=== PATIENT | female | born 1950 | race Two or more races ===

== ENCOUNTER 2025-04-08 18:25 | Inpatient (IN) | payer MEDICARE, OTHER, MEDICAID ==
[~2025-04-08] VITALS: Ht 170.2 cm; Wt 56.7 kg
[2025-04-08] MEDS: DEXTROSE (50%) 50ML SYRG IV ONE (18:50)
--- NOTE | 2025-04-08 19:23 | ED.PDOC ---
Altered Mental Status HPI Comments 74 year-old female presents to the ED from [facility] for increased ALOC. Patient is normal baseline A&O X1, responding to name. Patients BGL on scene was 41. En route, BGL was 34 and given 1MG Glucagon. There are no further complaints or modifying factors at this time. Chief Complaint: ALOC Time Seen by MD: 18:36 Reviewed Notes: Medications, Allergies Allergies: Coded Allergies: Codeine (Verified Allergy, Unknown, 04/08/25) Penicillins (Verified Allergy, Unknown, 04/08/25) Information Source: Emergency Med Personnel Mode of Arrival: EMS Severity: Mild Timing: Minutes Duration: Since onset Past Medical History PAST MEDICAL HISTORY: Asthma, Dementia, DM, HTN Surgical History: Unknown Social History Smoker: Non-Smoker Alcohol: Denies ETOH Use Drugs: Denies Drug Use Lives In: Assisted Care Constitutional: denies: chills, diaphoresis, fatigue, fever, malaise, sweats, weakness, others EENTM: denies: blurred vision, double vision, ear bleeding, ear discharge, ear drainage, ear pain, ear ringing, eye pain, eye redness, hearing loss, mouth pain, mouth swelling, nasal discharge, nose bleeding, nose congestion, nose pain, photophobia, tearing, throat pain, throat swelling, voice changes, others Respiratory: denies: cough, hemoptysis, orthopnea, SOB at rest, shortness of breath, SOB with excertion, stridor, wheezing, others Cardiovascular: denies: chest pain, dizzy spells, diaphoresis, Dyspnea on exertion, edema, irregular heart beat, left arm pain, lightheadedness, palpitations, PND, syncope, others Gastrointestinal: denies: abdomen distended, abdominal pain, blood streaked bowels, constipated, diarrhea, dysphagia, difficulty swallowing, hematemesis, melena, nausea, poor appetite, poor fluid intake, rectal bleeding, rectal pain, vomiting, others Genitourinary: denies: abnormal vagina bleeding, burning, dyspareunia, dysuria, flank pain, frequency, hematuria, incontinence, pain, , vagina discharge, urgency, others Neurological: denies: dizziness, fainting, headache, left sided numbness, left sided weakness, numbness, paresthesia, pre-existing deficit, right sided numbness, right sided weakness, seizure, speech problems, tingling, tremors, weakness, others Musculoskeletal: denies: back pain, gout, joint pain, joint swelling, muscle pain, muscle stiffness, neck pain, others Integumetry: denies: bruises, change in color, change in hair/nails, dryness, laceration, lesions, lumps, rash, wounds, others Allergic/Immunocompromised: denies: Difficulty Healing, Frequent Infections, Hives, Itching, others Hematologic/Lymphatic: denies: anemia, blood clots, easy bleeding, easy bruising, swollen glands, others Endocrine: denies: excessive hunger, excessive sweating, excessive thirst, excessive urination, flushing, intolerance to cold, intolerance to heat, unexplained weight gain, unexplained weight loss, others Psychiatric: denies: anxiety, bipolar disorder, depression, hopeless, panic disorder, schizophrenia, sleepless, suicidal, others Unable to Obtain due to: Altered Mental Status All Other Systems: Reviewed and Negative Physical Exam General Appearance: No Apparent Distress, Normal, Other (Patient is A&Ox1, re sponding to name, normal baseline ) HEENT: Normal ENT Inspection, Pharynx Normal, TMs Normal Neck: Full Range of Motion, Non-Tender, Normal, Normal Inspection Respiratory: Chest Non-Tender, Lungs Clear, No Accessory Muscle Use, No Respiratory Distress, Normal Breath Sounds Cardiovascular: No Edema, No JVD, No Murmur, No Gallop, Normal Peripheral Pulses, Regular Rate/Rhythm Breast Exam: Deferred Gastrointestinal: No Organomegaly, Non Tender, No Pulsatile Mass, Normal Bowel Sounds, Soft Genitalia: Deferred Pelvic: Deferred Rectal: Deferred Extremities: No calf tenderness, Normal capillary refill, Normal inspection, Normal range of motion, Non-tender, No pedal edema Musculoskeletal : Apperance: Normal Neurologic: Alert, dermatologist II-XII nml as Tested, No Motor Deficits, Normal Affect, Normal Mood, No Sensory Deficits Cerebellar Function: Normal Reflexes: Normal Skin: Dry, Normal Color, Warm Lymphatic: No Adenopathy Was a procedure done? Was a procedure done?: No Differential Diagnosis (ALOC) Differential Diagnosis: Dehydration, Hypoglycemia, Seizure, Closed Head Injury X-Ray, Labs, Meds, VS Vital Signs Date Time Temp Pulse Resp B/P (MAP) Pulse Ox O2 Delivery O2 Flow Rate FiO2 04/08/25 19:30 97.6 65 13 137/63 (87) 99 97.6 04/08/25 19:30 Room Air* 0 21 04/08/25 18:51 96.4 73 16 123/69 98 96.4 04/08/25 18:32 67 Lab Test 04/08/25 20:21 04/08/25 20:02 04/08/25 19:23 Range/Units Troponin I High Sensitivity 9 10 </=34 ng/L POC Glucose 176 H 70-106 mg/dl White Blood Count 7.5 4.4-10.8 10^3/uL Red Blood Count 4.59 4.0-5.20 10^6/uL Hemoglobin 13.6 12.2-16.2 g/dL Hematocrit 40.4 36.0-46.0 % Mean Corpuscular Volume 88.0 80.0-100.0 fL Mean Corpuscular Hemoglobin 29.7 28.0-32.0 pg Mean Corpuscular Hemoglobin Concent 33.8 32.0-36.0 g/dL Red Cell Distribution Width 15.9 H 11.8-14.3 % Platelet Count 300 140-450 10^3/uL Mean Platelet Volume 8.6 6.9-10.8 fL Neutrophils (%) (Auto) 74.2 37.0-80.0 % Lymphocytes (%) (Auto) 21.4 10.0-50.0 % Monocytes (%) (Auto) 3.7 0.0-12.0 % Eosinophils (%) (Auto) 0.3 0.0-7.0 % Basophils (%) (Auto) 0.4 0.0-2.0 % Neutrophils # (Auto) 5.6 1.6-8.6 10 ^3/uL Lymphocytes # (Auto) 1.6 0.4-5.4 10 ^3/uL Monocytes # (Auto) 0.3 0-1.3 10 ^3/uL Eosinophils # (Auto) 0 0-0.8 10 ^3/uL Basophils # (Auto) 0 0-0.2 10 ^3/uL Nucleated Red Blood Cells 0.1 % Sodium Level 143 136-145 mmol/L Potassium Level 3.3 L 3.5-5.1 mmol/L Chloride Level 108 H 98-107 mmol/L Carbon Dioxide Level 26 20-31 mmol/L Anion Gap 9 5-15 Blood Urea Nitrogen 10 9-23 mg/dL Creatinine 0.73 0.550-1.02 mg/dL Glomerular Filtration Rate Calc 86 >90 mL/min BUN/Creatinine Ratio 13.7 10.0-20.0 Serum Glucose 202 H 74-106 mg/dL Calcium Level 9.0 8.7-10.4 mg/dL Current Medications Medications (Trade) Dose Ordered Sig/Nahomy Route Start Time Stop Time Status Last Admin Dextrose 25 ml ONCE ONCE IV 04/08/25 18:45 04/08/25 18:46 DC 04/08/25 18:50 [place] [id number] Ph: [phone] DIAGNOSTIC IMAGING Diagnostic Imaging Report : [id number] Signed PATIENT: AGATHA GARCIA ACCT: [id number] UNIT: [id number] : 1950 LOC: ER ROOM / BED: / AGE / SEX: 74 / F ADM STATUS: REG ER SERVICE 09 ORDERING PHYSICIAN: LEANDRO HOOVER MD PROCEDURE(s): CXR1 - CHEST XRAY 1 VIEW REASON: altered ORDER NUMBER(s): [id number], ACCESSION NUMBER(s): [id number] CHEST RADIOGRAPH INDICATION: altered TECHNIQUE: Single frontal view of the chest was obtained COMPARISON: None FINDINGS: Lines and Tubes: None Lungs: No focal consolidation. Pleura: No effusion. No pneumothorax. Cardiomediastinal contours: Bones: No acute osseous abnormality. Narrowing of the acromial humeral joint space bilaterally suggesting rotator cuff tears. If of clinical concern recommend MRI. IMPRESSION: 1. No acute cardiopulmonary disease. 2. Patient is rotated to the right. 3. Narrowing of the acromial humeral joint space raising the question of chronic rotator cuff tear bilaterally. X-Ray, Labs, Meds, VS Comment Previous history reviewed: DM, Dementia, HTN, Asthma The following tests were ordered, and results were reviewed by me: CBC, BMP, UA, Troponin, EKG, Accucheck Additional Information was gathered from interviewing the following independent historians: N/A I reviewed and agreed with the following test results read by other providers: Chest XRAY I discussed treatment and results with medical personnel and: patient Comprehensive systems review obtained and negative except for what is stated in the HPI. Time of 1ST Reevaluation: 19:31 Reevaluation 1ST: Unchanged Patient Education/Counseling: Diagnosis, Treatment Family Education/Counseling: Diagnosis, Treatment, No Family Present Comments This is a patient who is from a assisted-living facility for most who was found to be lethargic. Blood sugar was low in the 40s. Since then patient has been given multiple doses of glucose however her sugar gradually taper down into the 60s again. She is on glipizide at home head CT does not show any intracranial causes of her lethargy. She does not have any evidence of acute NM or any active infections. Patient will need to be admitted for further evaluation and treatment for the recurrent and recalcitrant hypoglycemia causing lethargy This is a patient who is from a correction was found to be altered with hypoglycemia. She repeatedly had episodes of hypoglycemia despite of multiple doses of dextrose that was given. Patient will be admitted for further evaluation and treatment of the recalcitrant episodes of hypoglycemia. Dr. Tomlinson have put orders in the computer and Rodgers called us to give us authorization number. I was never involved in this. However it appears that Dr. Galdamez had obtained authorization to admit the patient here. SEPSIS Sepsis Screen Recent Procedure: No On Antibiotic Therapy: No Respiratory Rate >20: No Heart Rate >90: No Temp<36 C (96.8 F) or >38.3 C: No SBP <90 or MAP <65 mmHG: No New Acute Mental Status Change: No Is the patient on CPAP, BIPAP,: No SEPSIS EXCLUSION NOTE: pt is not septic Physician Orders Electrocardigram (04/08/25 18:49) Chest Xray 1 View (04/08/25 19:10) Continuous Ekg Monitoring 08,12,16,20,00,04 (04/08/25 19:10) Accucheck (04/08/25 20:00) Accucheck (04/08/25 21:00) Accucheck (04/08/25 22:00) Accucheck (04/08/25 23:00) Accucheck (04/09/25 00:00) Accucheck (04/09/25 01:00) Accucheck (04/09/25 02:00) Accucheck (04/09/25 03:00) Accucheck (04/09/25 04:00) Accucheck (04/09/25 05:00) Accucheck (04/09/25 06:00) Accucheck (04/09/25 07:00) Accucheck (04/09/25 08:00) Accucheck (04/09/25 09:00) Accucheck (04/09/25 10:00) Accucheck (04/09/25 11:00) Accucheck (04/09/25 12:00) Accucheck (04/09/25 13:00) Accucheck (04/09/25 14:00) Accucheck (04/09/25 15:00) Accucheck (04/09/25 16:00) Accucheck (04/09/25 17:00) Accucheck (04/09/25 18:00) Accucheck (04/09/25 19:00) Accucheck (04/09/25 20:00) Accucheck (04/09/25 21:00) Accucheck (04/09/25 22:00) Accucheck (04/09/25 23:00) Vital Signs Date Time Temp Pulse Resp B/P (MAP) Pulse Ox O2 Delivery O2 Flow Rate FiO2 04/08/25 19:30 97.6 65 13 137/63 (87) 99 97.6 04/08/25 19:30 Room Air* 0 21 04/08/25 18:51 96.4 73 16 123/69 98 96.4 04/08/25 18:32 67 Laboratory Tests Test 04/08/25 19:23 White Blood Count 7.5 10^3/uL (4.4-10.8) Medications Medications Dose Ordered Sig/Nahomy Route Start Time Stop Time Status Last Admin Dose Admin Dextrose 25 ml ONCE ONCE IV 04/08/25 18:45 04/08/25 18:46 DC 04/08/25 18:50 Departure 1 Departure Time of Disposition: 03:30 Impression: Primary Impression: Generalized weakness Additional Impression: Hypoglycemia Disposition: ADMITTED INPATIENT Admit to: Med Surg Condition: Serious Critical Care Note Critical Care Time?: Yes (55 min-critical care time only) Critical care comment: Total critical care time: Approximately 5 minutes Due to a high probability of clinically significant, life threatening deterioration, the patient required my highest level of preparedness to intervene emergently and I personally spent this critical care time directly and personally managing the patient. This critical care time included obtaining a history; examining the patient; pulse oximetry; ordering and review of studies; arranging urgent treatment with development of a management plan; evaluation of patient's response to treatment; frequent reassessment; and, discussions with other providers. This critical care time was performed to assess and manage the high probability of imminent, life-threatening deterioration that could result in multi-organ failure. It was exclusive of separately billable procedures and treating other patients. Stability Stability form required: No Heart Score Heart Score: Heart Score Response (Comments) Value History N/A 0 EKG N/A 0 Age N/A 0 Risk Factors N/A 0 Troponin N/A 0 Total 0 I personally scribed for LEANDRO HOOVER MD (TONIE) on 04/08/25 at 19:23. Electronically submitted by Diane Figueroa (Audaster). I personally scribed for LEANDRO HOOVER MD (TONIE) on 04/08/25 at 19:23. Electronically submitted by Diane Figueroa (Audaster). I personally scribed for LEANDRO HOOVER MD (TONIE) on 04/08/25 at 20:29. Electronically submitted by Diane Figueroa (Audaster). LEANDRO HOOVER MD Apr 08, 2025 19:23
[2025-04-08 19:33] LABS: Hematocrit 40.4 % (36.0-46.0); Hemoglobin 13.6 g/dL (12.2-16.2); Mean Corpuscular Hemoglobin 29.7 pg (28.0-32.0); Mean Corpuscular Volume 88.0 fL (80.0-100.0); Nucleated Red Blood Cells % 0.1 %
[2025-04-08 19:39] LABS: Sodium 143 mmol/L (136-145)
[2025-04-08 19:40] LABS: Anion Gap 9 (5-15); Carbon Dioxide 26 mmol/L (20-31)
[2025-04-08 19:41] LABS: Calcium 9.0 mg/dL (8.7-10.4)
[2025-04-08 19:45] LABS: BUN/Creatinine Ratio 13.7 (10.0-20.0); Blood Urea Nitrogen 10 mg/dL (9-23)
--- NOTE | 2025-04-08 19:51 | DVH ---
CHEST RADIOGRAPH INDICATION: altered TECHNIQUE: Single frontal view of the chest was obtained COMPARISON: None FINDINGS: Lines and Tubes: None Lungs: No focal consolidation. Pleura: No effusion. No pneumothorax. Cardiomediastinal contours: Bones: No acute osseous abnormality. Narrowing of the acromial humeral joint space bilaterally suggesting rotator cuff tears. If of clinical concern recommend MRI. IMPRESSION: 1. No acute cardiopulmonary disease. 2. Patient is rotated to the right. 3. Narrowing of the acromial humeral joint space raising the question of chronic rotator cuff tear bilaterally.
[2025-04-08 20:18] LABS: Chloride 108 mmol/L (98-107); Glucose 202 mg/dL (74-106); Potassium 3.3 mmol/L (3.5-5.1)
[2025-04-08] MEDS ORDERED: NITROGLYCERIN 0.4 MG SL TAB SL PRN (21:30)
[2025-04-08] MEDS ORDERED: DOCUSATE SOD 100 MG CAP PO PRN (21:30)
[2025-04-08] MEDS ORDERED: ONDANSETRON HCL 4 MG/2 ML VIAL IV PRN (21:30)
[2025-04-09] VITALS (8 sets, daily range): BP systolic 140–178; BP diastolic 79–92; PULSE 69–81; RESP 15–17; TEMP 97.7–98.3; O2SAT 94–99
--- NOTE | 2025-04-09 02:58 | DVH ---
EXAM: CT HEAD WITHOUT CONTRAST INDICATION: altered TECHNIQUE: CT of the head without intravenous contrast. Radiation Dose : 1. Head: CT Dose: CTDI volume is 91.56 mGy. Dose-length product is 2720.87 mGy*cm The dose indicators for CT are the volume Computed Tomography (CT) Dose Index (CTDIvol) and the Dose Length Product (DLP), and are measured in units of mGy and mGy-cm, respectively. These indicators are not patient dose, but values generated from the CT scanner acquisition factors. The report includes radiation exposure data for exposures received during this examination. COMPARISON: None FINDINGS: There is no evidence of acute intracranial hemorrhage, extra-axial collection, mass effect, midline shift, herniation or hydrocephalus. Increased prominence of the ventricles, sulci and cisterns consistent with sequelae Of atrophic cortical volume loss. The gruber-white differentiation is intact. Moderate diffuse confluent periventricular and subcortical white matter hypoattenuation is nonspecific but may be related to small vessel ischemic disease. Left ethmoid and right maxillary mucosal sinus disease. The remaining visualized paranasal sinuses and mastoid air cells are clear. The surrounding soft tissues and osseous structures are unremarkable. IMPRESSION: 1. No acute intracranial abnormality. 2. Chronic sequelae of microangiopathy and atrophic cortical volume loss. Radiation optimization: All CT scans at this facility use at least one of these dose optimization techniques: automated exposure control mA and/or kV adjustment per patient size (includes targeted exams where dose is matched to clinical indication) or iterative reconstruction.
[2025-04-09 03:11] LABS: Urine Protein, UAD 1+ (Negative)
[2025-04-09] MEDS: D5W/SOD CHLO 0.9% 1,000 ML IV SCH (03:49)
[2025-04-09] MEDS: DEXTROSE (50%) 50ML SYRG IV ONE (03:57)
[2025-04-09 04:32] LABS: Hematocrit 37.3 % (36.0-46.0); Hemoglobin 12.5 g/dL (12.2-16.2); Mean Corpuscular Hemoglobin 29.1 pg (28.0-32.0); Mean Corpuscular Volume 86.8 fL (80.0-100.0); Nucleated Red Blood Cells % 0.1 %
[2025-04-09 05:00] LABS: Alkaline Phosphatase 71 U/L (46-116); Anion Gap 9 (5-15); BUN/Creatinine Ratio 21.2 (10.0-20.0); Blood Urea Nitrogen 14 mg/dL (9-23); Carbon Dioxide 27 mmol/L (20-31); Glucose 104 mg/dL (74-106); Sodium 145 mmol/L (136-145); Total Protein 6.2 g/dL (5.7-8.2)
[2025-04-09 05:01] LABS: Bilirubin, Total 0.9 mg/dL (0.2-1.0)
[2025-04-09 05:14] LABS: Alanine Aminotransferase < 9 U/L (7-40); Albumin 3.0 g/dL (3.2-4.8); Calcium 8.7 mg/dL (8.7-10.4); Chloride 109 mmol/L (98-107); Potassium 3.5 mmol/L (3.5-5.1)
--- NOTE | 2025-04-09 06:57 | DVHHP2 ---
H&P Exam Vital Signs Vital Signs Date Time Temp Pulse Resp B/P (MAP) Pulse Ox O2 Delivery O2 Flow Rate FiO2 04/09/25 05:16 68 12 155/90 (111) 98 04/09/25 01:35 98.5 98.5 04/08/25 19:30 Room Air* 0 21 SEPSIS Sepsis Screen Recent Procedure: No On Antibiotic Therapy: No Respiratory Rate >20: No Heart Rate >90: No Temp<36 C (96.8 F) or >38.3 C: No SBP <90 or MAP <65 mmHG: No New Acute Mental Status Change: No Is the patient on CPAP, BIPAP,: No Physician Orders Head Without Contrast (04/09/25 00:13) Straight Cath. (04/09/25 ) Accucheck (04/09/25 01:00) Accucheck (04/09/25 02:00) Accucheck (04/09/25 03:00) Accucheck (04/09/25 04:00) Accucheck (04/09/25 05:00) Accucheck (04/09/25 06:00) Accucheck (04/09/25 07:00) Accucheck (04/09/25 08:00) Accucheck (04/09/25 09:00) Accucheck (04/09/25 10:00) Accucheck (04/09/25 11:00) Accucheck (04/09/25 12:00) Accucheck (04/09/25 13:00) Accucheck (04/09/25 14:00) Accucheck (04/09/25 15:00) Accucheck (04/09/25 16:00) Accucheck (04/09/25 17:00) Accucheck (04/09/25 18:00) Accucheck (04/09/25 19:00) Accucheck (04/09/25 20:00) Accucheck (04/09/25 21:00) Accucheck (04/09/25 22:00) Accucheck (04/09/25 23:00) Accucheck (04/10/25 00:00) Accucheck (04/10/25 01:00) Accucheck (04/10/25 02:00) Accucheck (04/10/25 03:00) Accucheck (04/10/25 04:00) Accucheck (04/10/25 05:00) Accucheck (04/10/25 06:00) Accucheck (04/10/25 07:00) Accucheck (04/10/25 08:00) Accucheck (04/10/25 09:00) Accucheck (04/10/25 10:00) Accucheck (04/10/25 11:00) Accucheck (04/10/25 12:00) Accucheck (04/10/25 13:00) Accucheck (04/10/25 14:00) Accucheck (04/10/25 15:00) Accucheck (04/10/25 16:00) Accucheck (04/10/25 17:00) Accucheck (04/10/25 18:00) Accucheck (04/10/25 19:00) Accucheck (04/10/25 20:00) Accucheck (04/10/25 21:00) Accucheck (04/10/25 22:00) Accucheck (04/10/25 23:00) D5w/Sod Chlo 0.9% (D5w Ns 0.9%) (04/09/25 03:30) Urine Bacterial Culture (04/09/25 06:05) Vital Signs Date Time Temp Pulse Resp B/P (MAP) Pulse Ox O2 Delivery O2 Flow Rate FiO2 04/09/25 05:16 68 12 155/90 (111) 98 04/09/25 03:37 75 16 146/90 (108) 99 04/09/25 01:35 98.5 65 12 161/91 (114) 97 98.5 04/08/25 23:13 97.9 76 12 163/97 (119) 98 97.9 Laboratory Tests Test 04/08/25 19:23 04/09/25 04:05 White Blood Count 7.5 10^3/uL (4.4-10.8) 7.5 10^3/uL (4.4-10.8) Medications Medications Dose Ordered Sig/Nahomy Route Start Time Stop Time Status Last Admin Dose Admin Dextrose/Sodium Chloride 1,000 ml @ 100 mls/hr Q10H IV 04/09/25 03:30 04/09/25 03:49 100 MLS/HR Labs/Xrays Labs Test 04/09/25 04:05 04/09/25 03:42 04/09/25 02:16 04/08/25 20:21 Range/Units White Blood Count 7.5 4.4-10.8 10^3/uL Red Blood Count 4.30 4.0-5.20 10^6/uL Hemoglobin 12.5 12.2-16.2 g/dL Hematocrit 37.3 36.0-46.0 % Mean Corpuscular Volume 86.8 80.0-100.0 fL Mean Corpuscular Hemoglobin 29.1 28.0-32.0 pg Mean Corpuscular Hemoglobin Concent 33.5 32.0-36.0 g/dL Red Cell Distribution Width 15.7 H 11.8-14.3 % Platelet Count 324 140-450 10^3/uL Mean Platelet Volume 8.6 6.9-10.8 fL Neutrophils (%) (Auto) 60.0 37.0-80.0 % Lymphocytes (%) (Auto) 31.8 10.0-50.0 % Monocytes (%) (Auto) 6.6 0.0-12.0 % Eosinophils (%) (Auto) 1.1 0.0-7.0 % Basophils (%) (Auto) 0.5 0.0-2.0 % Neutrophils # (Auto) 4.5 1.6-8.6 10 ^3/uL Lymphocytes # (Auto) 2.4 0.4-5.4 10 ^3/uL Monocytes # (Auto) 0.5 0-1.3 10 ^3/uL Eosinophils # (Auto) 0.1 0-0.8 10 ^3/uL Basophils # (Auto) 0 0-0.2 10 ^3/uL Nucleated Red Blood Cells 0.1 % Sodium Level 145 136-145 mmol/L Potassium Level 3.5 3.5-5.1 mmol/L Chloride Level 109 H 98-107 mmol/L Carbon Dioxide Level 27 20-31 mmol/L Anion Gap 9 5-15 Blood Urea Nitrogen 14 9-23 mg/dL Creatinine 0.66 0.550-1.02 mg/dL Glomerular Filtration Rate Calc 92 >90 mL/min BUN/Creatinine Ratio 21.2 H 10.0-20.0 Serum Glucose 104 74-106 mg/dL Calcium Level 8.7 8.7-10.4 mg/dL Total Bilirubin 0.9 0.2-1.0 mg/dL Aspartate Amino Transferase (AST) 13 13-40 U/L Alanine Aminotransferase (ALT) < 9 7-40 U/L Alkaline Phosphatase 71 46-116 U/L Total Protein 6.2 5.7-8.2 g/dL Albumin 3.0 L 3.2-4.8 g/dL POC Glucose 118 H 70-106 mg/dl Urine Color Yellow Yellow Urine Clarity Clear Clear Urine pH 5.5 5.0-9.0 Urine Specific [place] 1.024 1.001-1.035 Urine Protein 1+ H Negative Urine Ketones Negative Negative Urine Blood Negative Negative /uL Urine Nitrite Negative Negative Urine Bilirubin Negative Negative Urine Urobilinogen 2 H Negative mg/dL Urine Leukocyte Esterase Negative Negative /uL Urine RBC 3 0 - 4 /hpf Urine Microscopic WBC < 1 0-5 /HPF Urine Squamous Epithelial Cells None seen <5 /hpf Urine Bacteria None seen None Seen /hpf Urine Mucus Few None Seen Urine Glucose 3+ H Normal mg/dL Troponin I High Sensitivity 9 </=34 ng/L DANAY TORRES DO Apr 09, 2025 06:57
[2025-04-09] MEDS ORDERED: MORPHINE SULFATE 4 MG/ML SYR/VIAL IV PRN (07:45)
[2025-04-09] MEDS: ENOXAPARIN SOD 40 MG/0.4 ML SYRINGE SC SCH (09:49)
--- NOTE | 2025-04-09 10:04 | ECG ---
[facility] Test Date: 2025-04-08 Test Time: 18:32:31 Pat Name: AGATHA GARCIA Department: [facility] ED Patient ID: [id number] Room: 0204 A Gender: F [employer]: TIA : 1950 Requested By: LEANDRO HOOVER Order Number: [id number] Reading MD: Gregg Bills Measurements Intervals [place] Rate: 67 P: 47 MN: 139 QRS: 35 QRSD: 83 T: 88 QT: 483 QTc: 510 Interpretive Statements Sinus rhythm Abnormal R-wave progression, early transition Borderline T wave abnormalities Prolonged QT interval Baseline wander in lead(s) V3 Electronically Signed On 04-09-2025 15:28:58 PST by Gregg Bills Please click the below link to view image of tracing.
[2025-04-09] MEDS ORDERED: DIGOXIN (250MCG/ML) 2 ML AMPULE IV ONE (13:00)
[2025-04-09] MEDS ORDERED: GLIP10TA9 PO (14:57)
[2025-04-09] MEDS ORDERED: AMLO1TAB22 PO (14:57)
[2025-04-09] MEDS ORDERED: THIC1LIQ PO (14:58)
[2025-04-09] MEDS ORDERED: DEXTROSE (50%) 50ML SYRG IV PRN (16:30)
[2025-04-09] MEDS: InsuLIN REG 1unit/0.01ml Soln (100units/ml) SC SCH (17:28)
[2025-04-09] MEDS: ACCU-CHEK COMFORT CURVE STRIP VI SCH (17:29)
--- NOTE | 2025-04-09 20:06 | DVHPN2 ---
Progress Note Date Seen: Apr 09, 2025 Objective vital signs Vital Sign Date Time Temp Pulse Resp B/P (MAP) Pulse Ox O2 Delivery O2 Flow Rate FiO2 04/09/25 16:58 98.1 72 16 140/85 (103) 94 98.1 04/09/25 09:10 Room Air* 0 21 Total Intake and Output 04/08/25 04/08/25 04/09/25 15:00 23:00 07:00 Intake Total 200 ml Balance 200 ml medications Current Medications Medications Dose Ordered Sig/Nahomy Route Start Time Stop Time Status Last Admin Dose Admin Ondansetron HCl 4 mg Q4HP PRN IV 04/08/25 21:30 Docusate Sodium 100 mg BIDPRN PRN PO 04/08/25 21:30 Enoxaparin Sodium 40 mg DAILY SC 04/09/25 10:00 04/09/25 09:49 40 MG Nitroglycerin 0.4 mg Q5MINP PRN SL 04/08/25 21:30 Morphine Sulfate 2 mg Q30M PRN IV 04/09/25 07:45 Dextrose/Sodium Chloride 1,000 ml @ 100 mls/hr Q10H IV 04/09/25 03:30 04/09/25 15:07 100 MLS/HR Hydralazine HCl 10 mg Q4HP PRN IV 04/09/25 16:30 Diagnostic Test (Pha) 1 strip Q6HR 04/09/25 18:00 04/09/25 17:29 1 STRIP Insulin Human Regular Q6HR SC 04/09/25 18:00 04/09/25 17:28 3 UNITS Dextrose 50 ml UD PRN IV 04/09/25 16:30 laboratory and microbiology Laboratory Tests 04/09/25 04:05 Test 04/09/25 04:05 Range/Units Serum Glucose 104 74-106 mg/dL My Orders My Orders Orders - DANAY TORRES DO Procedure Category Date Status Time Admit ADMIT 04/08/25 Transmitted 21:20 Code Status CODE 04/08/25 Transmitted 21:20 Full Liq Diet DIET 04/09/25 Transmitted Breakfast Ondansetron Hcl PHA 04/08/25 In Process (Zofran) 21:30 Docusate Sodium PHA 04/08/25 In Process Capsule (Colace 21:30 Enoxaparin Sodium PHA 04/09/25 In Process (Lovenox) 10:00 Pt Request For Service PT 04/08/25 Logged 21:20 Nitroglycerin PHA 04/08/25 In Process Sublingual (Ntrostat 21:30 Stat Ekg For Chest WAYNE 04/08/25 In Process Pain 21:20 Notify Of Changes WAYNE 04/08/25 In Process From Base 21:20 [employer] For WAYNE 04/08/25 In Process 24 Hours 21:20 Emergency Dysrhythmia WAYNE 04/08/25 In Process Protocol 21:20 Rhythm Strips Once WAYNE 04/08/25 In Process Every Shift 21:20 Oxygen By Nasal RT 04/08/25 Transmitted Cannula 21:20 Morphine Sulfate PHA 04/09/25 In Process Injection 07:45 Insert/Manage Urinary WAYNE 04/09/25 In Process Catheter 08:42 * Wound Consult CONS 04/09/25 Transmitted Ammonia LAB 04/10/25 Verified 04:00 Hydralazine Injection PHA 04/09/25 In Process (Apresoline Inject 16:30 Glucose Blood PHA 04/09/25 In Process (Accu-Chek Comfort 18:00 Insulin R (Human) PHA 04/09/25 In Process (Insulin R) 18:00 Dextrose 50% Syringe PHA 04/09/25 In Process 16:30 DANAY TORRES DO Apr 09, 2025 20:06
[2025-04-09] MEDS: hydrALAZINE HCL 20 MG/ML VL IV PRN (21:31)
[2025-04-10] VITALS (8 sets, daily range): BP systolic 147–168; BP diastolic 88–100; PULSE 69–94; RESP 16–18; TEMP 97.2–98.1; O2SAT 94–99
[2025-04-11] VITALS (8 sets, daily range): BP systolic 120–171; BP diastolic 77–109; PULSE 86–110; RESP 16–19; TEMP 97.1–99.6; O2SAT 97–100
[2025-04-12 01:00] VITALS: BP 120/94; PULSE 111; RESP 20; TEMP 98.3; O2SAT 99
[2025-04-12 05:00] VITALS: BP 147/91; PULSE 111; RESP 20; TEMP 98.3; O2SAT 98
[2025-04-12 08:00] VITALS: RESP 14
--- NOTE | 2025-04-12 12:10 | DVHDS2 ---
Discharge Summary Date of Admission Apr 08, 2025 at 21:20 Date of Discharge: Apr 12, 2025 Labs/Diagnostic Data: Laboratory Results Test 04/12/25 09:56 04/10/25 04:48 04/09/25 04:05 04/09/25 02:16 POC Glucose 207 mg/dl (70-106) Ammonia 24 umol/L (11-32) White Blood Count 7.5 10^3/uL (4.4-10.8) Red Blood Count 4.30 10^6/uL (4.0-5.20) Hemoglobin 12.5 g/dL (12.2-16.2) Hematocrit 37.3 % (36.0-46.0) Mean Corpuscular Volume 86.8 fL (80.0-100.0) Mean Corpuscular Hemoglobin 29.1 pg (28.0-32.0) Mean Corpuscular Hemoglobin Concent 33.5 g/dL (32.0-36.0) Red Cell Distribution Width 15.7 % (11.8-14.3) Platelet Count 324 10^3/uL (140-450) Mean Platelet Volume 8.6 fL (6.9-10.8) Neutrophils (%) (Auto) 60.0 % (37.0-80.0) Lymphocytes (%) (Auto) 31.8 % (10.0-50.0) Monocytes (%) (Auto) 6.6 % (0.0-12.0) Eosinophils (%) (Auto) 1.1 % (0.0-7.0) Basophils (%) (Auto) 0.5 % (0.0-2.0) Neutrophils # (Auto) 4.5 10 ^3/uL (1.6-8.6) Lymphocytes # (Auto) 2.4 10 ^3/uL (0.4-5.4) Monocytes # (Auto) 0.5 10 ^3/uL (0-1.3) Eosinophils # (Auto) 0.1 10 ^3/uL (0-0.8) Basophils # (Auto) 0 10 ^3/uL (0-0.2) Nucleated Red Blood Cells 0.1 % Sodium Level 145 mmol/L (136-145) Potassium Level 3.5 mmol/L (3.5-5.1) Chloride Level 109 mmol/L (98-107) Carbon Dioxide Level 27 mmol/L (20-31) Anion Gap 9 (5-15) Blood Urea Nitrogen 14 mg/dL (9-23) Creatinine 0.66 mg/dL (0.550-1.02) Glomerular Filtration Rate Calc 92 mL/min (>90) BUN/Creatinine Ratio 21.2 (10.0-20.0) Serum Glucose 104 mg/dL (74-106) Calcium Level 8.7 mg/dL (8.7-10.4) Total Bilirubin 0.9 mg/dL (0.2-1.0) Aspartate Amino Transferase (AST) 13 U/L (13-40) Alanine Aminotransferase (ALT) < 9 U/L (7-40) Alkaline Phosphatase 71 U/L (46-116) Total Protein 6.2 g/dL (5.7-8.2) Albumin 3.0 g/dL (3.2-4.8) Urine Color Yellow (Yellow) Urine Clarity Clear (Clear) Urine pH 5.5 (5.0-9.0) Urine Specific [place] 1.024 (1.001-1.035) Urine Protein 1+ (Negative) Urine Ketones Negative (Negative) Urine Blood Negative /uL (Negative) Urine Nitrite Negative (Negative) Urine Bilirubin Negative (Negative) Urine Urobilinogen 2 mg/dL (Negative) Urine Leukocyte Esterase Negative /uL (Negative) Urine RBC 3 /hpf (0 - 4) Urine Microscopic WBC < 1 /HPF (0-5) Urine Squamous Epithelial Cells None seen /hpf (<5) Urine Bacteria None seen /hpf (None Seen) Urine Mucus Few (None Seen) Urine Glucose 3+ mg/dL (Normal) Test 04/08/25 20:21 Troponin I High Sensitivity 9 ng/L (</=34) Other Laboratory Tests 04/09/25 04:05 Discharge Disposition: Assisted Living Facility Discharge Instruct/Medications Diet: Cardiac 2g Na,low cholest Activity: No Restrictions, As Tolerated Scheduled Amlodipine Besylate (Amlodipine Besylate), 5 MG PO DAILY, (Reported) Glipizide (Glipizide), 10 MG PO BID, (Reported) Miscellaneous Medications Thickened Products (Thick-It), 1 LIQ PO, (Reported) Discharge Statement: "Patient was advised to return to the ER or call 911 if any headaches, dizziness, shortness of breath, chest pain, abdominal pain, bleeding, fevers, or worsening of medical condition. Patient was counseled about treatment plan, medications, possible side effects, patientverbalized understanding. All questions were answered to the best of my ability. This discharge took greater then 30 minutes in planning, reviewing documentation, counseling the patient, and discussing with other team members." ASSESSMENT ASSESSMENT Assessment DANAY TORRES DO Apr 12, 2025 12:10
[2025-04-12 13:00] VITALS: BP 151/92; PULSE 103; RESP 17; TEMP 100.1; O2SAT 96
[2025-04-12 20:00] VITALS: RESP 17
[2025-04-12 20:54] VITALS: BP 154/81; PULSE 99; RESP 17; TEMP 98.4; O2SAT 93
[2025-04-13] VITALS (8 sets, daily range): BP systolic 112–169; BP diastolic 73–111; PULSE 80–95; RESP 14–18; TEMP 98.1–98.9; O2SAT 93–100
[2025-04-14] VITALS (8 sets, daily range): BP systolic 122–166; BP diastolic 69–95; PULSE 82–114; RESP 16–18; TEMP 96.1–98.7; O2SAT 93–98
[2025-04-15] VITALS (8 sets, daily range): BP systolic 105–159; BP diastolic 58–90; PULSE 57–104; RESP 16–21; TEMP 97.9–98.8; O2SAT 94–98
[2025-04-16] VITALS (7 sets, daily range): BP systolic 142–160; BP diastolic 71–91; PULSE 76–92; RESP 17–18; TEMP 97.7–98.4; O2SAT 93–97
== END 2025-04-16 19:25 | disposition home or self-care (01) | DRG 637 ==
LOC: EDBD 18:25 → ER 18:25 → OVERFLOW 21:20 → CENTRAL 04-09 09:19
PROVIDERS: ADMIT Internal Medicine; ATTEND Internal Medicine
DX: E11.649 Type 2 diabetes mellitus with hypoglycemia without coma (principal); G93.41 Metabolic encephalopathy; F03.90 Unspecified dementia, unspecified severity, without behavioral disturbance, psychotic disturbance, mood disturbance, and anxiety; I10 Essential (primary) hypertension; J45.909 Unspecified asthma, uncomplicated; Z88.0 Allergy status to penicillin; Z88.5 Allergy status to narcotic agent
CPT/HCPCS: 36415; 70450; 71045; 80048; 80053; 81001; 82140; 82962; 84484; 85025; 87081; 87086; 93005; 97110; 97162; 99291; G0378; J1815; J7042